=== PATIENT | male | born 1980 | race Caucasian/White ===

== ENCOUNTER 2024-02-12 10:42 | Inpatient (IN) ==
[2024-02-12 11:35] LABS: BASOPHILS # (AUTO) 0.1 10^3/uL (0.0-0.1); BASOPHILS % (AUTO) 0.3 %; HCT - HEMATOCRIT 46.3 % (42.0-52.0); HGB - HEMOGLOBIN 15.6 g/dL (14.0-18.0); LYMPHOCYTES # (AUTO) 0.5 10^3/uL (1.5-3.5); LYMPHOCYTES % (AUTO) 2.3 %; MEAN CORPUSCULAR HEMOGLOBIN 30.5 pg (27.0-31.0); MEAN CORPUSCULAR HGB CONC 33.7 g/dL (32.0-36.0); MEAN CORPUSCULAR VOLUME 90.4 fL (80.0-94.0); MEAN PLATELET VOLUME 9.6 fL (7.4-11.4); MONOCYTES # (AUTO) 1.1 10^3/uL (0.0-1.0); MONOCYTES % (AUTO) 5.2 %; NEUTROPHILS % (AUTO) 91.6 %; PLT - PLATELET COUNT 276 10^3/uL (130-450); RED BLOOD COUNT 5.12 10^6/uL (4.70-6.10); RED CELL DISTRIBUTION WIDTH 12.1 % (12.0-15.0); WHITE BLOOD COUNT 21.9 x10^3/uL (4.8-10.8)
--- NOTE | 2024-02-12 11:35 | ED Physician Documentation ---
History of Present Illness Stated complaint Stated Complaint: LT ELBOW PX,REDNESS,SWELLING Chief complaint Chief Complaint: Ext Problem Additonal information Additional information: 43-year-old male presents emergency department with no past medical history no immunocompromise no history of cancer presents to the emergency department for left elbow swelling. Yesterday he woke up with some mild pain to the outside of the elbow there is no redness or swelling no fevers or chills as the day progressed around 10 AM he noticed some localized erythema at the bend of the outside of the elbow that progressively worsened over time. His is at bedside showed me pictures and there is significant increased swelling and erythema in comparison yesterday. Yesterday he went to urgent care and was started on doxycycline and Rocephin has not missed any of those doses he went back to urgent care today for follow-up and they sent him to the emergency department for further evaluation as he appears to overall be doing worse. Patient says overnight he did not sleep well he has been having generalized malaise, body aches, fevers and chills. Tmax at home 104 Fahrenheit. He denies any history of staph, MRSA or sepsis. He has any history of surgery to the left elbow. There is a very small superficial abrasion that he says he does not know where it came from and does not even remember ever having this. Meds/Allgy Home Medications Ambulatory Orders Medication Instructions Recorded Confirmed doxycycline hyclate 100 mg tablet 100 mg PO BID 10 days #20 tabs 02/11/24 02/12/24 Allergies Allergies Allergy/AdvReac Type Severity Reaction Status Date / Time No Known Drug Allergies Allergy Verified 02/12/24 10:59 [facility] Medical History Medical History (Updated 02/12/24 @ 16:27 by Niranjan De La Vega) No pertinent past medical history Cellulitis of left elbow Surgical History Surgical History (Updated 02/12/24 @ 10:58 by Lisbeth Wadsworth, RN, BSN) No pertinent past surgical history Social History Social History (Updated 02/12/24 @ 10:58 by Lisbeth Wadsworth, RN, BSN) Smoking Status: Former smoker If you are a former smoker, when did you quit? (Date/Year): 2007 Do you dip or chew tobacco?: No Do you vape?: Yes Smoking Status Details: quit 2007 Relationship: Level: Independent Do you feel safe in your home environment?: Yes Suffered physical, verbal, emotional, or financial abuse?: No Substance Use: denies use Exam Constitutional normal general appearance, no apparent distress, average body habitus, no limitations and alert Lymph lymphadenopathy noted (left axillary lymphedema.) Respiratory breath sounds equal bilaterally Cardiovascular heart rate abnormal (tachycardic) Extremities left lateral epicondyle erythema with significant swelling, outlined in ER triage with pen with induration, no obvious fluctuance. Results Vitals Vitals: Vital Signs - 24 hr 02/12/24 10:54 02/12/24 12:00 02/12/24 12:49 Temperature 37.6 C 37.2 C 37.1 C Temperature Source Oral Oral Oral Pulse Rate 120 H 115 H 109 H Respiratory Rate 15 18 22 Blood Pressure 116/82 156/105 H 156/105 H O2 Saturation 98 97 99 O2 Source Room air Room air Room air Pain Intensity 3 0 02/12/24 13:00 02/12/24 13:57 02/12/24 14:30 Temperature 98.3 C H 37.7 C Temperature Source Oral Oral Pulse Rate 116 H 110 H 114 H Respiratory Rate 19 13 16 Blood Pressure 165/100 H 165/100 H 154/92 H O2 Saturation 98 97 O2 Source Room air Room air Room air Pain Intensity 5 6 6 02/12/24 15:00 Temperature Temperature Source Pulse Rate 124 H Respiratory Rate 21 Blood Pressure 173/105 H O2 Saturation 98 O2 Source Room air Pain Intensity 5 Oxygen O2 Source Room air EKG (time done) 1220: EKG releavant findings:: EKG personally interpreted by author of this note. Relevant findings are: Rate: Rate (enter#) (106) Rhythm: Sinus tachycardia and Other ( ventricular premature complexes) Nenzel: RAD Intervals: Normal IA Ischemia: Poor R wave progression Computer interpretation: Agree with computer Labs Labs: Laboratory Tests 02/12/24 02/12/24 02/12/24 11:18 12:42 13:18 WBC 21.9 H RBC 5.12 Hgb 15.6 Hct 46.3 MCV 90.4 MCH 30.5 MCHC 33.7 RDW 12.1 Plt Count 276 MPV 9.6 Neut # (Auto) 20.0 H Lymph # (Auto) 0.5 L [place] # (Auto) 1.1 H Eos # (Auto) 0.0 Baso # (Auto) 0.1 Absolute Nucleated RBC 0.00 Nucleated RBC % 0.0 Manual Slide Review Indicated WBC Morphology Platelet Estimate NORMAL (130-450,000) Platelet Morphology NORMAL APPEARANCE RBC Morph Micro Appear NORMAL APPEARANCE ESR 12 Sodium 134 L Potassium 3.6 Chloride 98 L Carbon Dioxide 27 Anion Gap 9.0 BUN 14 Creatinine 0.9 Estimated GFR (MDRD) 93 Glucose 171 H Lactic Acid 1.1 Calcium 9.4 Total Bilirubin 0.9 AST 33 ALT 23 Alkaline Phosphatase 79 C-Reactive Protein 26.2 H Total Protein 7.5 Albumin 4.7 Globulin 2.8 Albumin/Globulin Ratio 1.7 Urine Color DARK YELLOW Urine Clarity CLEAR Urine pH 6.0 Ur Specific [place] >=1.030 H Urine Protein 100 H Urine Glucose (UA) NEGATIVE Urine Ketones NEGATIVE Urine Occult Blood SMALL H Urine Nitrite NEGATIVE Urine Bilirubin SMALL H Urine Urobilinogen 0.2 (NORMAL) Ur Leukocyte Esterase NEGATIVE Urine RBC 0-5 Urine WBC 4-5 Ur Squamous Epith Cells RARE Squamous Urine Bacteria Rare Urine Culture Comments NOT INDICATED Nasal Screen MRSA (PCR) NEGATIVE Rads (name of study) Left elbow Xrays: Relevant Findings:: Final report received and EMP independent interpretation of test Interpretation: IMPRESSION: No radiopaque foreign body. No visualized underlying osseous abnormality. PD Medical Decision Making ED course Complexity details: reviewed results, re-evaluated patient, considered differential, d/w patient, d/w family and d/w organizational research consultant (Dr. Chan, [place]) ED course: 43-year-old male presents emergency department with his for concerns of ongoing left elbow swelling pain fevers and chills. Labs are complete for further evaluation and he does have significant leukocytosis 21.9 neutrophils also found to be elevated at 20.0 no significant electrolyte abnormalities glucose mildly elevated at 171. CRP elevated at 26.2 and lactic acid is found to be within normal limits as well as sed rate. Patient denies any history of MRSA or staph. Because patient did meet sepsis criteria he was given IV fluids and started on IV vancomycin 2 sets of blood cultures were collected prior to initiating IV antibiotics. I spoke with on-call Ortho outpatient for left elbow swelling as well as concern about possible septic joint versus septic bursitis Dr. Mahmood with Ortho came to bedside to evaluate the patient and she believes that this is most likely just sepsis due to cellulitis of the left elbow. There is a very small superficial abrasion over the lateral epicondyle with no purulent drainage. There is no fluctuance over the joint to indicate possible abscess. X-rays are complete for further evaluation and reveal no foreign body and no other underlying osseous abnormalities. Spoke with on-call hospitalist Dr. Parr who is graciously agreed to admit the patient for IV antibiotics and further evaluation of patient's sepsis. Patient is agreeable to stay. Discharge Plan Discharge Patient Disposition: [facility] DC/Xfer Condition: Stable Clinical Impression: Sepsis, Cellulitis, Tachycardia Interventions: ED Admission Assessment Last Done: 02/12/24 15:46
[2024-02-12 11:52] LABS: ALBUMIN 4.7 g/dL (3.2-5.5); ALBUMIN/GLOBULIN RATIO 1.7 (1.0-2.2); BILIRUBIN,TOTAL 0.9 mg/dL (0.2-1.0); CALCIUM 9.4 mg/dL (8.5-10.3); CREATININE 0.9 mg/dL (0.6-1.3); POTASSIUM 3.6 mmol/L (3.5-4.5); TOTAL PROTEIN 7.5 g/dL (6.4-8.9)
[2024-02-12 11:54] LABS: PLATELET ESTIMATE, MANUAL NORMAL (130-450,000) (NORMAL); PLATELET MORPHOLOGY NORMAL APPEARANCE (NORMAL); RBC MORPHOLOGY (MULTIPLE) NORMAL APPEARANCE (NORMAL); SLIDE REVIEW? Indicated
[2024-02-12] MEDS: SODIUM CHLORIDE 0.9% 2,041.17 ML IV STA (12:23)
[2024-02-12] MEDS: VANCOMYCIN INJ 1.25 GM in SODIUM CHLORIDE 0.9% 500 ML IV STA (12:24)
[2024-02-12 13:27] LABS: BILIRUBIN,URINE SMALL (NEGATIVE); GLUCOSE, URINE (UA) NEGATIVE (NEGATIVE); KETONES,URINE (UA) NEGATIVE (NEGATIVE); LEUKOCYTE ESTERASE, URINE NEGATIVE (NEGATIVE); NITRITE,URINE NEGATIVE (NEGATIVE); OCCULT BLOOD,URINE SMALL (NEGATIVE); PROTEIN,URINE 100 mg/dL (NEGATIVE); UROBILINOGEN,URINE 0.2 (NORMAL) E.U./dL (NORMAL)
[2024-02-12 13:28] LABS: CLARITY,URINE CLEAR (CLEAR)
[2024-02-12 13:43] LABS: BACTERIA,URINE Rare /HPF (None Seen); RBC,URINE 0-5 /HPF (0-5); SQUAMOUS EPITHELIAL CELL,UR RARE Squamous (<= Few)
--- NOTE | 2024-02-12 13:47 | XRAY Report ---
PROCEDURE: XR Elbow 3+V LT INDICATIONS: left elbow swelling with erythma TECHNIQUE: 3 views of the elbow were acquired. COMPARISON: None. FINDINGS: Bones: No fractures or dislocations. No suspicious bony lesions. Soft tissues: No effusion. No suspicious soft tissue calcifications or masses. No radiopaque forei gn body. IMPRESSION: No radiopaque foreign body. No visualized underlying osseous abnormality. Reviewed by: Ann Morel MD on 02/12/2024 1:45 PM PST Approved by: Ann Morel MD on 02/12/2024 1:45 PM PST Station ID: [id number]
--- NOTE | 2024-02-12 15:13 | HISTORY & PHYSICAL EXAMINATION ---
Chief Complaint Chief Complaint Chief Complaint: Left elbow pain History of Present Illness History of Present Illness HPI Comment/Other: 43 yo RHD M with Left elbow pain that started on 02/12/2024. He was seen in the walk in clinic and given one dose of IV antibiotics and sent home on oral medications. He reports that his redness and pain has increased since yesterday and he presented to the ED. I was consulted to rule out septic joint. He states he does not have difficulty moving his elbow until extremes of extension. No known injury or prior infection. He does have an abrasion but is unsure how he obtained it. PMH: none PSH: none MEDS: none NKDA Tob: deneis ETOH occasionally. Meds/Allgy Home Medications Ambulatory Orders Medication Instructions Recorded Confirmed doxycycline hyclate 100 mg tablet 100 mg PO BID 10 days #20 tabs 02/11/24 02/12/24 Allergies Allergies Allergy/AdvReac Type Severity Reaction Status Date / Time No Known Drug Allergies Allergy Verified 02/12/24 10:59 [facility] Medical History Medical History (Updated 02/12/24 @ 12:54 by Cecilia Franks DNP) No pertinent past medical history Cellulitis of left elbow Surgical History Surgical History (Updated 02/12/24 @ 10:58 by Lisbeth Wadsworth, RN, BSN) No pertinent past surgical history Social History Social History (Updated 02/12/24 @ 10:58 by Lisbeth Wadsworth, RN, BSN) Smoking Status: Former smoker If you are a former smoker, when did you quit? (Date/Year): 2007 Relationship: Do you feel safe in your home environment?: Yes Suffered physical, verbal, emotional, or financial abuse?: No Exam Exam LUE: shoulder and wrist are nttp. 6 x 5 cm of erythema and warmth over posterior aspect of elbow. + swelling. 1 cm abrasion over the posterior aspect of the elbow NO drainage No palpalbe fluctuance ROM 0-120 deg; pro/sup: 70/70 No joint irritability. 3 v of the L elbow: no evidence of fracture, dislocation or soft tissue lesion; no foreign body. WBC count: 21 ESR: 12 CRP 26.2 Conclusion/Plan Problem List (1) Cellulitis: Plan: Recommend sling, ice and admission by internal medicine for IV antibiotics. Gentle ROM to the elbow when swelling and erythema starts to resolve. Lab Results Lab results reviewed: Yes 02/12/24 11:18 02/12/24 11:18
--- NOTE | 2024-02-12 15:35 | PHARMACY PROGRESS NOTE ---
Best Possible Medication History Admit Date and Time: 02/12/24 [id number] Home Medications Medication Instructions Recorded Confirmed Type doxycycline hyclate 100 mg tablet 100 mg PO BID 10 days #20 tabs 02/11/24 02/12/24 Rx Processed by: Pharmacy (Medication reconciliation completed by pharmacy assistantRosalino) Medications reviewed in ED?: Yes Medication History completed: Yes Patient Interview: Completed Secondary Source(s): Insurance records [facility] Statement: As the person ultimately responsible for medication therapy, providers are able to order a medication from an existing home medication list in [facility] via the "Reconcile Routine" prior to Confirmation of that medication by student support services director. Such practice is discouraged except when the physician, in their clinical judgment, deems that a medical need exists for a medication without regard to previous use.
[2024-02-12] MEDS ORDERED: ONDANSETRON ODT 4 MG TABLET TL PRN (15:37)
[2024-02-12] MEDS ORDERED: PROCHLORPERAZINE 10 MG/2 ML VIAL IVP PRN (15:37)
[2024-02-12] MEDS ORDERED: ACETAMINOPHEN 325 MG TABLET PO PRN (15:37)
[2024-02-12] MEDS ORDERED: ONDANSETRON 4 MG/2 ML VIAL IVP PRN (15:37)
[2024-02-12] MEDS: ceFAZolin 1 GM in SODIUM CHLORIDE 0.9% MINIBAG 100 ML IV SCH (16:18)
--- NOTE | 2024-02-12 16:52 | HISTORY & PHYSICAL EXAMINATION ---
Chief Complaint <Niranjan De La Vega - Last Filed: 02/12/24 17:21> Chief Complaint Chief Complaint: pain and redness of left elbow History of Present Illness <Niranjan De La Vega - Last Filed: 02/12/24 17:21> Admitted From Admitted From:: [facility] History Obtained From Records Reviewed: [facility] History of Present Illness HPI Comment/Other: 43 y/o white male was transferred from the ER for painful and swollen left elbow. Patient woke up yesterday with painful and swollen left elbow. He doesn't not recall specific incident that caused this. [facility] was prescribed IM Rocephin and PO doxycycline. The erythema was about the size of a quarter at this time. Patient said overnight he did not sleep well he has been having generalized malaise, body aches, fevers and chills. This morning, he reports the erythema spread on his elbow with increased pain. He went back to the urgent care but was then sent to the ER. Pt works a salesman for [employer]. 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 Meds/Allgy <Niranjan De La Vega - Last Filed: 02/12/24 17:21> Home Medications Ambulatory Orders Medication Instructions Recorded Confirmed doxycycline hyclate 100 mg tablet 100 mg PO BID 10 days #20 tabs 02/11/24 02/12/24 Allergies Allergies Allergy/AdvReac Type Severity Reaction Status Date / Time No Known Drug Allergies Allergy Verified 02/12/24 10:59 PFSH <Niranjan De La Vega - Last Filed: 02/12/24 17:21> Medical History Medical History (Updated 02/12/24 @ 16:27 by Niranjan De La Vega) No pertinent past medical history Cellulitis of left elbow Surgical History Surgical History (Updated 02/12/24 @ 10:58 by Lisbeth Wadsworth, RN, BSN) No pertinent past surgical history Social History Social History (Updated 02/12/24 @ 10:58 by Lisbeth Wadsworth, RN, BSN) Smoking Status: Former smoker If you are a former smoker, when did you quit? (Date/Year): 2007 Do you dip or chew tobacco?: No Do you vape?: Yes Smoking Status Details: quit 2007 Relationship: Level: Independent Do you feel safe in your home environment?: Yes Suffered physical, verbal, emotional, or financial abuse?: No Substance Use: denies use POLST Patient has POLST: No Review of Systems <[facility] Last Filed: 02/12/24 17:21> Constitutional Denies: Fever, Chills, Night sweats or Changes in appetite or eating habits Eyes Denies: Pain, Vision loss, Change in vision or Light sensitivity Ears, nose, mouth, and throat Denies: Ear pain, Ear discharge or Post nasal drip Cardiovascular Reports: Irregular heart rate (elevated HR ); Denies: chest pain or shortness of breath with exertion Respiratory Denies: Shortness of breath or Cough Musculoskeletal Reports: Extremity pain (left elbow pain with extension and flexion of the elbow ) and Extremity swelling (left elbow ) Neurological Denies: Numbness in extremities Hematologic/Lymphatic Denies: Anemia Allergic/Immunologic Denies: Hives <[facility] - Last Filed: 02/12/24 17:21> Prior Level of Functionality: Patient is a young health male with no issues of ADL. Exam <[facility] - Last Filed: 02/12/24 17:21> Exam well dress male, appeared his age. Constitutional normal general appearance and average body habitus HENMT normocephalic and external ears normal Eyes PERRL and conjunctivae normal Neck/C-Spine visual inspection normal Lymph no lymphadenopathy noted Chest inspection of chest normal Respiratory breath sounds equal bilaterally Cardiovascular no gallop, no rub and no murmur heart rate was elevated. Gastrointestinal abdomen normal to inspection and normoactive bowel sounds Genitourinary no CVA tenderness Back/Pelvis spine normal to inspection Extremities no deformity left elbow lateral erythema, pain spread 50% of forearm and bicept. Neurology sound effects technician II-XII intact, no movement abnormality noted and speech normal Psychiatry oriented x3, thought process normal and cooperative Skin no lesions and nails normal left elbow erythema. Conclusion/Plan <[facility] - Last Filed: 02/12/24 17:21> Problem List (1) Cellulitis: Plan: Recommend sling, ice and admission by internal medicine for IV antibiotics. Gentle ROM to the elbow when swelling and erythema starts to resolve. pending blood culture. (2) Tachycardia: Plan: heart rate should be slowing down after infection is treated. Plan 43 y/o otherwise healthy male presents with 2 days of worsening pain and swelling left elbow that got worse with outpatient antibiotic treatment, elevated white cell count (21.9) and tachycardia. Pt was treated in the urgent care empirically for cellulitis with IM Rocephin and PO doxycycline. Pt didn't not have any animal bite/cut nor bursitis, no acute MSK injury. On exam, the effected elbow is tender, warm to the touch, painful with extension/flexion of the elbow. With an remarkable left elbow xray. I would like to try IV antibiotic. skin erythema was marked today at the ER. Lab Results Lab results reviewed: Yes 02/12/24 11:18 02/12/24 11:18 EKG Results EKG Interpreted Independently: No <Uma Maddox MD - Last Filed: 02/12/24 17:25> Problem List (1) Cellulitis: (2) Tachycardia: Core Measures <Niranjan Yolette - Last Filed: 02/12/24 17:21> Anticipated LOS I expect patient to be DC'd or transferred within 96 hours.: Yes DVT/VTE - Prophylaxis VTE/DVT Device ordered at admit?: Yes Stroke - Rehab Assessment Rehab services assessment to be ordered?: No AMI - Statin at Admit Aspirin Prescribed on Admit: No
[2024-02-12] MEDS: SACCHAROMYCES BOULARDII 250 MG CAPSULE PO SCH (16:55)
[2024-02-12] MEDS: SODIUM CHLORIDE FLUSH 0.9% 10 ML SYRINGE IVP SCH (16:56)
[2024-02-12] MEDS: IBUPROFEN 400 MG TABLET PO PRN (17:07)
[2024-02-12] MEDS: oxyCODONE 5 MG TABLET PO PRN (21:51)
[2024-02-13 06:02] LABS: BASOPHILS % (AUTO) 0.3 %; EOSINOPHILS # (AUTO) 0.2 10^3/uL (0.0-0.7); EOSINOPHILS % (AUTO) 1.5 %; HCT - HEMATOCRIT 39.7 % (42.0-52.0); HGB - HEMOGLOBIN 13.4 g/dL (14.0-18.0); LYMPHOCYTES # (AUTO) 0.6 10^3/uL (1.5-3.5); LYMPHOCYTES % (AUTO) 4.5 %; MEAN CORPUSCULAR HEMOGLOBIN 30.7 pg (27.0-31.0); MEAN CORPUSCULAR HGB CONC 33.8 g/dL (32.0-36.0); MEAN CORPUSCULAR VOLUME 91.1 fL (80.0-94.0); MONOCYTES # (AUTO) 0.8 10^3/uL (0.0-1.0); MONOCYTES % (AUTO) 5.6 %; NEUTROPHILS # (AUTO) 12.6 10^3/uL (1.5-6.6); NEUTROPHILS % (AUTO) 87.6 %; PLT - PLATELET COUNT 233 10^3/uL (130-450); RED BLOOD COUNT 4.36 10^6/uL (4.70-6.10); RED CELL DISTRIBUTION WIDTH 12.3 % (12.0-15.0); WHITE BLOOD COUNT 14.4 x10^3/uL (4.8-10.8)
[2024-02-13 06:38] LABS: CALCIUM 8.4 mg/dL (8.5-10.3); CREATININE 0.7 mg/dL (0.6-1.3); POTASSIUM 3.7 mmol/L (3.5-4.5)
--- NOTE | 2024-02-13 10:30 | PHARMACY PROGRESS NOTE ---
Vancomycin Therapy Monitoring Assessment of Current Therapy Vancomycin Loading Dose (GM, if applicable): RECEIVED 1250MG AT 1223 YESTERDAY, RESTARTING VANCOMYCIN DUE TO WORSENING CELLULITIS Plan: New Regimen (Enter new dose and interval): 1G EVERY 8 HOURS, ANTICIPATED AUC 402 Vancomycin Level Recommendation: Vancomycin Level Recommendation (AFTER 4TH DOSE IF PLANNING ON CONTINUING)
[2024-02-13] MEDS: PIPERACILLIN/TAZOBACTAM 4.5 GM in SODIUM CHLORIDE 0.9% MINIBAG 100 ML IV ONE (10:46)
[2024-02-13] MEDS: VANCOMYCIN INJ 1 GM in SODIUM CHLORIDE 0.9% 250 ML IV SCH (10:55)
[2024-02-13] MEDS: CHOLECALCIFEROL 25 MCG TABLET PO SCH (11:02)
--- NOTE | 2024-02-13 13:42 | CONSULTATION NOTE ---
Referring Provider Name of Referring Provider:: Dr. Uma Maddox Consult Date: 02/13/24 Chief Complaint Chief Complaint Chief Complaint: LEFT elbow swelling, pain and redness History of Present Illness Admitted From Admitted From:: ED History Obtained From Records Reviewed: Yes. History obtained from: Patient and chart Exam Limitations: None. History of Present Illness HPI Comment/Other: Patient is a very pleasant 43-year-old male who was evaluated in room 05/03/2007 at [facility] MedSurg unit at the request of Dr. Maddox after she spoke with infectious disease and recommended a surgical consultation to rule out necrotizing fasciitis. The patient's symptoms started on Saturday morning with some tenderness at the left elbow. The patient does not remember how he received the half inch long incision on his elbow. The redness worsened and got bigger and he was placed on doxycycline. When this did not improve he presented to the emergency department. There is been no purulent discharge from the incision. There is no erythema or complaint of pain in any other part of his body. He has not had this occur previously. Other than the aforementioned incision he does not recall any trauma to the area. To my understanding he has been evaluated by our orthopedic physicians and it has been noted that this infection does not involve the joint. [facility] Medical History Medical History (Updated 02/12/24 @ 16:27 by Niranjan De La Vega) No pertinent past medical history Cellulitis of left elbow Surgical History Surgical History (Updated 02/12/24 @ 10:58 by Lisbeth Wadsworth, RN, BSN) No pertinent past surgical history Social History Social History (Updated 02/12/24 @ 10:58 by Lisbeth Wadsworth, RN, BSN) Smoking Status: Former smoker If you are a former smoker, when did you quit? (Date/Year): 2007 Do you dip or chew tobacco?: No Do you vape?: Yes Smoking Status Details: quit 2007 Relationship: Level: Independent Do you feel safe in your home environment?: Yes Suffered physical, verbal, emotional, or financial abuse?: No Substance Use: denies use POLST Patient has POLST: No Meds/Allgy Home Medications Ambulatory Orders Medication Instructions Recorded Confirmed doxycycline hyclate 100 mg tablet 100 mg PO BID 10 days #20 tabs 02/11/24 02/12/24 Allergies Allergies Allergy/AdvReac Type Severity Reaction Status Date / Time No Known Drug Allergies Allergy Verified 02/12/24 10:59 Results Lab Results 02/13/24 05:15 02/13/24 05:15 Other Lab Results: Lab Results x24hrs 02/13/24 02/12/24 02/12/24 Range/Units 05:15 13:18 12:42 WBC 14.4 H (4.8-10.8) x10^3/uL RBC 4.36 L (4.70-6.10) 10^6/uL Hgb 13.4 L (14.0-18.0) g/dL Hct 39.7 L (42.0-52.0) % MCV 91.1 (80.0-94.0) fL MCH 30.7 (27.0-31.0) pg MCHC 33.8 (32.0-36.0) g/dL RDW 12.3 (12.0-15.0) % Plt Count 233 (130-450) 10^3/uL MPV 10.0 (7.4-11.4) fL Neut # (Auto) 12.6 H (1.5-6.6) 10^3/uL Lymph # (Auto) 0.6 L (1.5-3.5) 10^3/uL [place] # (Auto) 0.8 (0.0-1.0) 10^3/uL Eos # (Auto) 0.2 (0.0-0.7) 10^3/uL Baso # (Auto) 0.0 (0.0-0.1) 10^3/uL Absolute Nucleated RBC 0.00 x10^3/uL Nucleated RBC % 0.0 /100WBC Sodium 136 (135-145) mmol/L Potassium 3.7 (3.5-4.5) mmol/L Chloride 106 (101-111) mmol/L Carbon Dioxide 23 (21-32) mmol/L Anion Gap 7.0 (6-13) BUN 9 (6-20) mg/dL Creatinine 0.7 (0.6-1.3) mg/dL Estimated GFR (MDRD) 124 (>89) Glucose 124 H (74-104) mg/dL Calcium 8.4 L (8.5-10.3) mg/dL Urine RBC 0-5 (0-5) /HPF Urine WBC 4-5 (0-3) /HPF Ur Squamous Epith Cells RARE Squamous (<= Few) Urine Bacteria Rare (None Seen) /HPF Urine Culture Comments NOT INDICATED Nasal Screen MRSA (PCR) NEGATIVE (NEGATIVE) Diagnostic Imaging Results Diagnostic Imaging Results: positive Final report reviewed and Read contemporaneously Conclusion and Plan Diagnosis Diagnosis: Cellulitis of the left elbow likely following an incision at the olecranon process Plan Plan: The patient has no indication that he has necrotizing fasciitis. The patient is not diabetic, not an alcoholic, not a cirrhotic which covers 3 of the most common presenters. He does not appear to have any of the physical findings that are consistent with necrotizing fasciitis. The antibiotics have recently been changed to broader coverage with Zosyn and vancomycin. I believe the patient has now received his second dose of vancomycin and his first dose of Zosyn. As a result I believe the etienne that I made delineating the cellulitis should be used to determine whether or not there is worsening of disease. These antibiotics will cover the most common etiologies for complex cellulitis. I do not believe that the patient has any exposure that would concern us for more rare pathogen's (Pseudomonas, haemophilus influenza, nocardia or tuberculosis). There has also not been exposure to sea water. Surgically, the plan should be that if the patient does not positively respond to the current antibiotic coverage within 24 hours then I would recommend stronger antibiotic coverage with either Primaxin or ertapenem and transfer to a higher level of care. CPT 08594 Today's documentation has been created with the assistance of voice recognition software. Therefore, it may contain anomalous punctuation, anomalous independent mis-recognitions, word substitutions, insertions or omissions. Occasional wrong-word or phonetically similar substitutions may also occur all due to the inherent limitations of voice recognition software. I have attempted to correct the above but I recommend that the chart be read carefully to recognize, using context, where the substitutions, insertions or omissions may have occurred. Review of Systems Status of ROS: 10 or more systems reviewed and unremarkable except as noted in history and below Exam Constitutional normal general appearance, no apparent distress, average body habitus and no limitations HENMT normocephalic, head/scalp atraumatic, hearing grossly normal bilaterally and external ears normal Eyes conjunctivae normal and no scleral icterus Neck/C-Spine visual inspection normal and trachea midline Extremities abnormal to inspection, abnormal to palpation, tenderness noted and no joint enlargement Targeted examination of LEFT elbow only. Redness marked with a purple skin marker in the ED and the erythema has extended past these etienne. I marked the new margin with black ink (dots). The greatest amount of tenderness is inferior to the olecranon process and posterior. No crepitus throughout. The joint is not involved. Mobility of the elbow causes discomfort but it is minimal. There is a healing 1/2 inch laceration at the olecranon process. Skin is mildly thickened. No bullae. Neurology no movement abnormality noted, no focal motor deficit noted and no sensory deficits noted Psychiatry mental status grossly normal, oriented x3, thought process normal, cooperative, affect normal, psychomotor activity normal and memory normal Skin skin color normal See above for description of LEFT elbow.
--- NOTE | 2024-02-13 14:05 | PROVIDER PROGRESS NOTE ---
Documented by User: Niranjan Michelaaly 02/13/24 14:42 Subjective Prog Note Date Prog Note Date: 02/13/24 Subjective Pt reports feeling: Worse (Pt stated that his left elbow range of motion is getting worse ) Subjective: Pt state that he did not have good night of sleep due to the pain and discomfort of the left elbow. range of motion of effected elbow is getting worse. Pt did have good appetite, with no issue of defecation or urination. He has no other complaints at the moment. Current Medications Current Medications Current Medications: Current Medications Generic Name Dose Route Start Last Admin Trade Name Freq PRN Reason Stop Dose Admin Acetaminophen 650 mg 02/12/24 15:37 Acetaminophen 325 Mg Tablet PO Q4HR PRN Pain 1 to 4, or Fever Cholecalciferol 50 mcg 02/13/24 11:00 02/13/24 11:02 Cholecalciferol 25 Mcg Tablet PO 50 mcg DAILY ELY Administration Vancomycin HCl 1 gm/ Sodium 250 mls @ 167 mls/hr 02/13/24 10:30 02/13/24 10:55 Chloride IV 167 mls/hr Q8H ELY Administration Piperacillin Sod/Tazobactam 100 mls @ 25 mls/hr 02/13/24 14:00 Sod 3.375 gm/ Sodium Chloride IV Q8H ELY Ibuprofen 400 mg 02/12/24 15:37 02/12/24 17:07 Ibuprofen 400 Mg Tablet PO 400 mg Q4HR PRN Administration Pain 1 to 4 Ondansetron HCl 4 mg 02/12/24 15:37 Ondansetron 4 Mg/2 Ml Vial IVP Q6HR PRN Nausea / Vomiting Ondansetron HCl 4 mg 02/12/24 15:37 Ondansetron Odt 4 Mg Tablet TL Q6HR PRN Nausea / Vomiting Oxycodone HCl 5 mg 02/12/24 15:37 02/13/24 08:51 Oxycodone 5 Mg Tablet PO 5 mg Q4HR PRN Administration Pain 5 to 7 Prochlorperazine Edisylate 10 mg 02/12/24 15:37 Prochlorperazine 10 Mg/2 Ml Vial IVP Q6HR PRN Nausea / Vomiting Saccharomyces Boulardii 250 mg 02/12/24 17:00 02/13/24 08:51 Saccharomyces Boulardii 250 Mg Capsule PO 250 mg BIDWM ELY Administration Sodium Chloride 10 ml 02/12/24 15:37 Sodium Chloride Flush 0.9% 10 Ml Syringe IVP PRN PRN NEEDED PER PROVIDER ORDERS Sodium Chloride 10 ml 02/12/24 17:00 02/13/24 08:51 Sodium Chloride Flush 0.9% 10 Ml Syringe IVP 10 ml 0100,0900,1700 ELY Administration Objective Vital Signs/Intake & Output Reviewed Vital Signs: Yes Vital Signs: Vital Signs x48h Temp Pulse Resp BP Pulse Ox 02/13/24 09:42 37.3 C 120 H 18 139/81 H 98 Intake & Output: Intake & Output 02/11/24 02/12/24 02/13/24 02/14/24 05:59 05:59 05:59 05:59 Intake Total 3081.17 / 3081.17 340 / 340 Balance 3081.17 / 3081.17 340 / 340 Weight (kg) 68 kg Objective General Appearance: positive Alert and Moderate distress (pain and tenderness left elbow ) Eyes Bilateral: positive Normal inspection and PERRL ENT: positive ENT inspection nml Neck: positive No JVD and Trachea midline Respiratory: positive No respiratory distress Cardiovascular: positive Regular rate & rhythm, No murmur, No gallop and Tachycardia Abdomen: positive No organomegaly and Nml bowel sounds Back: positive Nml inspection Skin: positive Color nml Extremities: positive Other (1 cm cut was noticed on left elbow olecranon ); negative Non-tender (left elbow ), Full ROM (pain with extension and flexion of the left elbow ) or Nml appearance (erythematous, and warm to the touch ) Neurologic/Psychiatric: positive Oriented x3, Motor nml and Sensation nml Lab Results 02/13/24 05:15 02/13/24 05:15 Other Labs: Lab Results x24hrs 02/13/24 02/12/24 02/12/24 Range/Units 05:15 13:18 12:42 WBC 14.4 H (4.8-10.8) x10^3/uL RBC 4.36 L (4.70-6.10) 10^6/uL Hgb 13.4 L (14.0-18.0) g/dL Hct 39.7 L (42.0-52.0) % MCV 91.1 (80.0-94.0) fL MCH 30.7 (27.0-31.0) pg MCHC 33.8 (32.0-36.0) g/dL RDW 12.3 (12.0-15.0) % Plt Count 233 (130-450) 10^3/uL MPV 10.0 (7.4-11.4) fL Neut # (Auto) 12.6 H (1.5-6.6) 10^3/uL Lymph # (Auto) 0.6 L (1.5-3.5) 10^3/uL [place] # (Auto) 0.8 (0.0-1.0) 10^3/uL Eos # (Auto) 0.2 (0.0-0.7) 10^3/uL Baso # (Auto) 0.0 (0.0-0.1) 10^3/uL Absolute Nucleated RBC 0.00 x10^3/uL Nucleated RBC % 0.0 /100WBC ESR (0-15) mm/Hr Sodium 136 (135-145) mmol/L Potassium 3.7 (3.5-4.5) mmol/L Chloride 106 (101-111) mmol/L Carbon Dioxide 23 (21-32) mmol/L Anion Gap 7.0 (6-13) BUN 9 (6-20) mg/dL Creatinine 0.7 (0.6-1.3) mg/dL Estimated GFR (MDRD) 124 (>89) Glucose 124 H (74-104) mg/dL Calcium 8.4 L (8.5-10.3) mg/dL Urine Color DARK YELLOW Urine Clarity CLEAR (CLEAR) Urine pH 6.0 (5.0-7.5) PH Ur Specific [place] >=1.030 H (1.002-1.030) Urine Protein 100 H (NEGATIVE) mg/dL Urine Glucose (UA) NEGATIVE (NEGATIVE) mg/dL Urine Ketones NEGATIVE (NEGATIVE) mg/dL Urine Occult Blood SMALL H (NEGATIVE) Urine Nitrite NEGATIVE (NEGATIVE) Urine Bilirubin SMALL H (NEGATIVE) Urine Urobilinogen 0.2 (NORMAL) (NORMAL) E.U./dL Ur Leukocyte Esterase NEGATIVE (NEGATIVE) Urine RBC 0-5 (0-5) /HPF Urine WBC 4-5 (0-3) /HPF Ur Squamous Epith Cells RARE Squamous (<= Few) Urine Bacteria Rare (None Seen) /HPF Urine Culture Comments NOT INDICATED Nasal Screen MRSA (PCR) NEGATIVE (NEGATIVE) 02/12/24 Range/Units 11:18 WBC (4.8-10.8) x10^3/uL RBC (4.70-6.10) 10^6/uL Hgb (14.0-18.0) g/dL Hct (42.0-52.0) % MCV (80.0-94.0) fL MCH (27.0-31.0) pg MCHC (32.0-36.0) g/dL RDW (12.0-15.0) % Plt Count (130-450) 10^3/uL MPV (7.4-11.4) fL Neut # (Auto) (1.5-6.6) 10^3/uL Lymph # (Auto) (1.5-3.5) 10^3/uL [place] # (Auto) (0.0-1.0) 10^3/uL Eos # (Auto) (0.0-0.7) 10^3/uL Baso # (Auto) (0.0-0.1) 10^3/uL Absolute Nucleated RBC x10^3/uL Nucleated RBC % /100WBC ESR 12 (0-15) mm/Hr Sodium (135-145) mmol/L Potassium (3.5-4.5) mmol/L Chloride (101-111) mmol/L Carbon Dioxide (21-32) mmol/L Anion Gap (6-13) BUN (6-20) mg/dL Creatinine (0.6-1.3) mg/dL Estimated GFR (MDRD) (>89) Glucose (74-104) mg/dL Calcium (8.5-10.3) mg/dL Urine Color Urine Clarity (CLEAR) Urine pH (5.0-7.5) PH Ur Specific [place] (1.002-1.030) Urine Protein (NEGATIVE) mg/dL Urine Glucose (UA) (NEGATIVE) mg/dL Urine Ketones (NEGATIVE) mg/dL Urine Occult Blood (NEGATIVE) Urine Nitrite (NEGATIVE) Urine Bilirubin (NEGATIVE) Urine Urobilinogen (NORMAL) E.U./dL Ur Leukocyte Esterase (NEGATIVE) Urine RBC (0-5) /HPF Urine WBC (0-3) /HPF Ur Squamous Epith Cells (<= Few) Urine Bacteria (None Seen) /HPF Urine Culture Comments Nasal Screen MRSA (PCR) (NEGATIVE) Diagnostic Imaging Diagnostic Imaging Results: positive Final report reviewed ABX Reporting Has patient been on IV antibiotics over the past 48 hours?: Yes Assessment/Plan Problem List (1) Cellulitis: Impression: Pt is White blood count went down to 14.4 from previous 21.9, blood pressure and heart rate is still elevated. He is afebrile. The erythematous area that was marked yesterday at the ER has spreaded. IV ancef is discontinued and we are using the combination of IV zosyn and Vancomycin to address the infection. On examination today with, I observed a 1 cm laceration on left elbow olecranon that I did not see yesterday. Pt is not aware of this either. Blood culture is still pending. Pt is in good spirit. At this point, Nacrotizing fascitis is on my on differential. Plan: General Surgeon, Dr Master Sloan was consulted and MRI is ordered to rule out a narcotizing fasciitis. (2) Tachycardia: Impression: Patient's heart remain elevated. I expect by treating his infection with IV Zosyn, and Vancomycin this will be normalized. Documented by User: Uma Maddox MD 02/13/24 15:00 Objective Lab Results 02/13/24 05:15 02/13/24 05:15 Assessment/Plan Problem List (1) Cellulitis: (2) Tachycardia:
[2024-02-13] MEDS: PIPERACILLIN/TAZOBACTAM 3.375 GM in SODIUM CHLORIDE 0.9% MINIBAG 100 ML IV SCH (14:07)
[2024-02-13] MEDS ORDERED: iohexoL-300 100 ML VIAL ONE (15:37)
[2024-02-13] MEDS: iohexoL-300 100 ML VIAL IVP ONE (16:07)
--- NOTE | 2024-02-13 16:44 | CT Report ---
PROCEDURE: CT Upper Extremity left with contrast. INDICATIONS: left elbow laceration now with severe cellulitis worse TECHNIQUE: CT of the left elbow is performed COMPARISON: No prior CT for comparison FINDINGS: Moderate diffuse soft tissue swelling predominantly posterior to the distal humerus, olecranon and po sterior greater than anterior aspect of the proximal forearm. Commonly these findings are related to cellulitis as reported in the history or other cause of diffuse soft tissue edema. Myositis and other deep tissue abnormalities are not well evaluated by CT, better evaluated by MR. No focal loculated fluid collection to suggest abscess. No gross CT evidence of elbow joint effusion. No displaced fracture, dislocation or high attenuation soft tissue foreign body. No gross abnormal co ntrast enhancement. The exam is somewhat limited by edema hardening artifacts. IMPRESSION: Moderate diffuse soft tissue swelling as discussed above, suspected cellulitis without gross CT evide nce of focal fluid collection to suggest abscess. If symptoms persist or worsen, or there is high clinical suspicion of left elbow/upper extremity abno rmality, MRI could be performed. Reviewed by: Dago Rock MD on 02/13/2024 4:42 PM PST Approved by: Dago Rock MD on 02/13/2024 4:42 PM PST Station ID: [id number]
[2024-02-14] MEDS: SODIUM CHLORIDE FLUSH 0.9% 10 ML SYRINGE IVP PRN (03:24)
[2024-02-14 05:59] LABS: BASOPHILS % (AUTO) 0.2 %; EOSINOPHILS # (AUTO) 0.3 10^3/uL (0.0-0.7); EOSINOPHILS % (AUTO) 1.9 %; HCT - HEMATOCRIT 40.3 % (42.0-52.0); HGB - HEMOGLOBIN 13.3 g/dL (14.0-18.0); LYMPHOCYTES # (AUTO) 1.1 10^3/uL (1.5-3.5); LYMPHOCYTES % (AUTO) 8.1 %; MEAN CORPUSCULAR HEMOGLOBIN 30.7 pg (27.0-31.0); MEAN CORPUSCULAR VOLUME 93.1 fL (80.0-94.0); MEAN PLATELET VOLUME 9.7 fL (7.4-11.4); MONOCYTES # (AUTO) 0.8 10^3/uL (0.0-1.0); NEUTROPHILS # (AUTO) 11.2 10^3/uL (1.5-6.6); NEUTROPHILS % (AUTO) 83.4 %; PLT - PLATELET COUNT 246 10^3/uL (130-450); RED BLOOD COUNT 4.33 10^6/uL (4.70-6.10); WHITE BLOOD COUNT 13.4 x10^3/uL (4.8-10.8)
[2024-02-14 06:03] LABS: CALCIUM 8.8 mg/dL (8.5-10.3); CREATININE 0.7 mg/dL (0.6-1.3); POTASSIUM 3.3 mmol/L (3.5-4.5)
[2024-02-14] MEDS: POTASSIUM CHLORIDE 20 MEQ TABLET PO ONE (13:23)
--- NOTE | 2024-02-14 17:40 | PROVIDER PROGRESS NOTE ---
Documented by User: Niranjan Michelaaly 02/14/24 17:44 Subjective Prog Note Date Prog Note Date: 02/14/24 Subjective Pt reports feeling: Improved Subjective: Pt reports he is getting better and that his ROM of the left elbow is getting better with minimal pain. normal appetite and bowl movement. There's an incidental finding of foreign object with prior X-ray on pt's left elbow that's on the opposite side of the infection. Pt has said the object might have been in there 10-15 years ago. Pt and his are anxious and wanted to be out of the hospital. Current Medications Current Medications Current Medications: Current Medications Generic Name Dose Route Start Last Admin Trade Name Freq PRN Reason Stop Dose Admin Acetaminophen 650 mg 02/12/24 15:37 Acetaminophen 325 Mg Tablet PO Q4HR PRN Pain 1 to 4, or Fever Cholecalciferol 50 mcg 02/13/24 11:00 02/14/24 08:47 Cholecalciferol 25 Mcg Tablet PO 50 mcg DAILY ELY Administration Vancomycin HCl 1 gm/ Sodium 250 mls @ 167 mls/hr 02/13/24 10:30 02/14/24 11:35 Chloride IV Infused Q8H ELY Infusion Piperacillin Sod/Tazobactam 100 mls @ 25 mls/hr 02/13/24 14:00 02/14/24 13:24 Sod 3.375 gm/ Sodium Chloride IV 25 mls/hr Q8H ELY Administration Ibuprofen 400 mg 02/12/24 15:37 02/13/24 21:47 Ibuprofen 400 Mg Tablet PO 400 mg Q4HR PRN Administration Pain 1 to 4 Ondansetron HCl 4 mg 02/12/24 15:37 Ondansetron 4 Mg/2 Ml Vial IVP Q6HR PRN Nausea / Vomiting Ondansetron HCl 4 mg 02/12/24 15:37 Ondansetron Odt 4 Mg Tablet TL Q6HR PRN Nausea / Vomiting Oxycodone HCl 5 mg 02/12/24 15:37 02/13/24 20:20 Oxycodone 5 Mg Tablet PO 5 mg Q4HR PRN Administration Pain 5 to 7 Prochlorperazine Edisylate 10 mg 02/12/24 15:37 Prochlorperazine 10 Mg/2 Ml Vial IVP Q6HR PRN Nausea / Vomiting Saccharomyces Boulardii 250 mg 02/12/24 17:00 02/14/24 08:47 Bismark Andersoni 250 Mg Capsule PO 250 mg BIDWM ELY Administration Sodium Chloride 10 ml 02/12/24 15:37 02/14/24 03:24 Sodium Chloride Flush 0.9% 10 Ml Syringe IVP 10 ml PRN PRN Administration NEEDED PER PROVIDER ORDERS Sodium Chloride 10 ml 02/12/24 17:00 02/14/24 08:47 Sodium Chloride Flush 0.9% 10 Ml Syringe IVP Not Given 0100,0900,1700 [facility] Objective Vital Signs/Intake & Output Reviewed Vital Signs: Yes Vital Signs: Vital Signs x48h Temp Pulse Resp BP Pulse Ox 02/14/24 08:10 36.7 C 94 H 18 150/89 H 98 Intake & Output: Intake & Output 02/12/24 02/13/24 02/14/24 02/15/24 05:59 05:59 05:59 05:59 Intake Total 3081.17 / 3081.17 2410 / 2410 590 / 590 Balance 3081.17 / 3081.17 2410 / 2410 590 / 590 Weight (kg) 68 kg Objective General Appearance: positive No acute distress and Alert Eyes Bilateral: positive Normal inspection and PERRL Respiratory: positive No respiratory distress Cardiovascular: positive No murmur and Tachycardia; negative Regular rate & rhythm (elevated heart rate ) Abdomen: positive Non-tender, Nml bowel sounds and No distention Back: positive Nml inspection Skin: positive Color nml (erythematous and warm to the touch, the area has expanded ), No rash and Laceration (cm) (1 cm laceration of the olecranon of the left elbow ) Extremities: positive Full ROM and Nml appearance Neurologic/Psychiatric: positive Oriented x3, Motor nml and Sensation nml Lab Results 02/14/24 05:45 02/14/24 05:45 Other Labs: Lab Results x24hrs 02/14/24 Range/Units 05:45 WBC 13.4 H (4.8-10.8) x10^3/uL RBC 4.33 L (4.70-6.10) 10^6/uL Hgb 13.3 L (14.0-18.0) g/dL Hct 40.3 L (42.0-52.0) % MCV 93.1 (80.0-94.0) fL MCH 30.7 (27.0-31.0) pg MCHC 33.0 (32.0-36.0) g/dL RDW 12.0 (12.0-15.0) % Plt Count 246 (130-450) 10^3/uL MPV 9.7 (7.4-11.4) fL Neut # (Auto) 11.2 H (1.5-6.6) 10^3/uL Lymph # (Auto) 1.1 L (1.5-3.5) 10^3/uL [place] # (Auto) 0.8 (0.0-1.0) 10^3/uL Eos # (Auto) 0.3 (0.0-0.7) 10^3/uL Baso # (Auto) 0.0 (0.0-0.1) 10^3/uL Absolute Nucleated RBC 0.00 x10^3/uL Nucleated RBC % 0.0 /100WBC Sodium 139 (135-145) mmol/L Potassium 3.3 L (3.5-4.5) mmol/L Chloride 105 (101-111) mmol/L Carbon Dioxide 27 (21-32) mmol/L Anion Gap 7.0 (6-13) BUN 9 (6-20) mg/dL Creatinine 0.7 (0.6-1.3) mg/dL Estimated GFR (MDRD) 124 (>89) Glucose 120 H (74-104) mg/dL Calcium 8.8 (8.5-10.3) mg/dL Diagnostic Imaging Diagnostic Imaging Results: positive Final report reviewed ABX Reporting Has patient been on IV antibiotics over the past 48 hours?: Yes Assessment/Plan Problem List (1) Cellulitis: Impression: Pt has elevated blood pressure and heart rate. the infection on the arm has spread distantly and proximately. He remains afrebile. WBC remain elevated. Pt has no other complaints, his in good spirit. MRI was ordered to r/o narcotizing fasciitis. However, due to a incidental finding of foreign object in his left elbow, we did not proceed with MRI. We had CT instead and the finding is unremarkable. Plan: We will continue him on IV antibiotics for 24-48 hrs until the infection is subsided and then switch to PO antibiotics. (2) Tachycardia: Impression: heart rate remains high. I expect this would resolve once his infection is eliminated Plan: continue with IV antibiotics Documented by User: Uma Maddox MD 02/14/24 17:45 Objective Lab Results 02/14/24 05:45 02/14/24 05:45 Assessment/Plan Problem List (1) Cellulitis: (2) Tachycardia:
[2024-02-14 18:25] LABS: VANCOMYCIN,TROUGH 8.4 ug/mL
[2024-02-15 05:37] LABS: BASOPHILS % (AUTO) 0.3 %; EOSINOPHILS # (AUTO) 0.3 10^3/uL (0.0-0.7); EOSINOPHILS % (AUTO) 2.9 %; HCT - HEMATOCRIT 38.3 % (42.0-52.0); LYMPHOCYTES # (AUTO) 1.3 10^3/uL (1.5-3.5); LYMPHOCYTES % (AUTO) 14.7 %; MEAN CORPUSCULAR HEMOGLOBIN 30.9 pg (27.0-31.0); MEAN CORPUSCULAR HGB CONC 33.9 g/dL (32.0-36.0); MONOCYTES # (AUTO) 0.9 10^3/uL (0.0-1.0); MONOCYTES % (AUTO) 9.9 %; NEUTROPHILS # (AUTO) 6.1 10^3/uL (1.5-6.6); NEUTROPHILS % (AUTO) 71.3 %; PLT - PLATELET COUNT 245 10^3/uL (130-450); RED BLOOD COUNT 4.21 10^6/uL (4.70-6.10); RED CELL DISTRIBUTION WIDTH 11.8 % (12.0-15.0); WHITE BLOOD COUNT 8.6 x10^3/uL (4.8-10.8)
[2024-02-15 05:50] LABS: CALCIUM 8.5 mg/dL (8.5-10.3); CREATININE 0.7 mg/dL (0.6-1.3); POTASSIUM 3.9 mmol/L (3.5-4.5)
[2024-02-15 07:41] VITALS: O2SAT 97
[2024-02-15] MEDS: VANCOMYCIN INJ 1 GM, VANCOMYCIN INJ 250 MG in SODIUM CHLORIDE 0.9% 250 ML IV SCH (10:01)
--- NOTE | 2024-02-15 10:53 | Discharge Summary ---
"Discharge Summary Admit Date: 02/12/24 Discharge Date: 02/15/24 Discharging Provider: Uma Maddox MD Primary Care Provider: Norman Asencio MD Code Status: Attempt Resuscitation DIAGNOSES Discharge Diagnoses with Status of Each Condition: 1. Cellulitis left elbow 2. Failure to respond to outpatient treatment 3. Sinus tachycardia HPI History of Present Illness: 43 y/o white male was transferred from the ER for painful and swollen left elbow. Patient woke up yesterday with painful and swollen left elbow. He doesn't not recall specific incident that caused this. Patient then went into the walking clinic here on [facility] and was prescribed IM Rocephin and PO doxycycline. The erythema was about the size of a quarter at this time. Patient said overnight he did not sleep well he has been having generalized malaise, body aches, fevers and chills. This morning, he reports the erythema spread on his elbow with increased pain. He went back to the urgent care but was then sent to the ER. Pt works a salesman for [employer]. 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 CONSULTS | PROCEDURES Consultations: Orthopedics was consulted in the emergency room. Next consultation was wit Procedures: 1. Elbow x-ray did not have a radiopaque foreign body in the area of infection. Not noted on exam but interpreted by me, there is a foreign body in the ventral surface of the antecubital fossa. Radiology is focused in the dorsal aspect of the elbow. 2. CT of upper extremity, left with contrast has moderate diffuse soft tissue swelling predominantly posterior to the distal humerus, olecranon and posterior greater than anterior aspect of the proximal forearm. These are related to cellulitis. Myositis and other deep tissue abnormalities are not evaluated well by CT. No focal loculated effusion to suggest abscess. No gross CT evidence of elbow joint effusion. No displaced fracture, dislocation of hypoattenuation soft tissue foreign body. MRI was ordered, but marine engineering technicians declined on the basis of the foreign body seen on plain film. 3. Blood cultures x 4 bottles negative after 5 days HOSPITAL COURSE Hospital Course: The patient is infection was felt to be failure of outpatient management and he was placed in inpatient status. Even though he was placed on adequate antibiotics, the area of cellulitis initially spread over the first 24 to 38 hours. He did not quite meet the diagnostic criteria for sepsis. While he was tachycardic and had a elevated white cell, there is no criteria by fever. That was the day before admission. He was 38 8 then but not febrile during this admission. A demarcated line was placed in the emergency room showing where the cellulitis was. The next day it was significantly spread above the outline and below the line. Regression of cellulitis did not occur until on the late afternoon of February 13. By the morning of the there was significant regression and only minimal redness at the surface of the elbow. The patient had a fever of 38.8 on February 10. And a low-grade fever for the rest of the week to 37.7. On the day of discharge he was 36.6 and the highest he was was 37.3. White cell count with his first visit to the ER was 3.6. The next day, on his second visit to the ER, his white cell count had gone up to 21.9. When the patient no longer had fever and his white cell count was to normal at 8.6 on February 14, he was transitioned to oral medications. He was very anxious to go home. I explained to him that I was not clear about why he developed such as severe cellulitis. He has no risk factors. And there is no clear entry way of infection other than a small line dorsal to the elbow. And there is a question of the foreign body in the anterior surface that he said was something that he had done years and years ago. In any case I have asked him to come back to the emergency room if his cellulitis comes back. His tetanus shot is already up-to-date.I asked him to please follow-up with his primary care provider. Greater than 30 minutes was spent coordinating discharge ALLERGIES Allergies Allergy/AdvReac Type Severity Reaction Status Date / Time No Known Drug Allergies Allergy Verified 02/19/24 07:07 MEDICATIONS Ambulatory Orders Medication Instructions Recorded Confirmed dicloxacillin 500 mg capsule 500 mg PO QID #24 caps 02/15/24 02/19/24 PHYSICAL EXAM AT DISCHARGE General Appearance: positive No acute distress, Alert and Other (Thin, well nourished, well-developed white male who looks stated age) Eyes Bilateral: positive Normal inspection, PERRL and EOMI ENT: positive ENT inspection nml and No signs of dehydration Neck: positive Nml inspection and No JVD; negative Stiff neck Respiratory: positive No respiratory distress and Breath sounds nml Cardiovascular: positive Regular rate & rhythm; negative Tachycardia (Sinus tachycardia was present every day at above 100. He did not drop below 100 until the day of discharge.) Skin: positive Other (Redness, heat, induration of the skin was now located only above the surface over the elbow joint directly. It no longer came up proximally or distally below the elbow.) Extremities: positive Full ROM, No pedal edema and Joint swelling (Minimal at the elbow.) Neurologic/Psychiatric: positive Oriented x3, CN's nml (2-12) and Motor nml LABS 02/15/24 05:30 02/15/24 05:30 TIME SPENT Time Spent in Discharge (Minutes): 35 Discharge Plan Discharge Patient Disposition: Home, Self Care Condition: Stable Medically Cleared Date:: 02/15/24 Prescriptions: New dicloxacillin 500 mg capsule 500 mg PO QID Qty: 24 0RF Discontinued doxycycline hyclate 100 mg tablet 100 mg PO BID 10 Days Qty: 20 0RF Activity Restrictions: Activity as Tolerated Diet: Regular Health Concerns: LeftTo our emergency room because the walk-in clinic sent you. Left arm infection and you were placed on doxycycline and sent home. But you got worse so you came back to the ER. In our emergency room we found you to have a terrible cellulitis of your left elbow skin area. We were worried about necrotizing fasciitis. We were worried about abscess. But imaging studies and a general surgery consult were done and you had most likely staph/strep cellulitis. You responded to antibiotics and now I am sending you home on an antibiotic to finish your treatment. Assessment: Alert and oriented times person, place, time and situation. Plan of Treatment: 1. Please see your primary care provider in follow-up in the next 1 to 2 weeks. 2. Complete 6 more days of antibiotic therapy by taking dicloxacillin 500 mg capsule 4 times a day. Because antibiotics can disrupt your GI tract, please take an [id number] probiotic twice a day while you are on the antibiotics. Print Language: Albanian Patient Instructions: Cellulitis Dc Stand Alone Forms: PCP List Follow-up Care: Norman Asencio MD [Primary Care Provider] -"
== END 2024-02-15 11:17 | disposition home or self-care (01) | DRG 603 ==
LOC: ED 10:42 → MS2 15:28
PROVIDERS: ADMIT Specialist; ATTEND Specialist
DX: L03.114 Cellulitis of left upper limb; X58.XXXA Exposure to other specified factors, initial encounter; R00.0 Tachycardia, unspecified; M79.5 Residual foreign body in soft tissue; S50.312A Abrasion of left elbow, initial encounter; Z87.891 Personal history of nicotine dependence